=== PATIENT | male | born 1945 | race Caucasian/White ===

== ENCOUNTER → 2016-10-23 | Outpatient (REF) | payer MEDICARE ==
[~2016-10-23] MED LIST: ASPI1TAB PO; DIOV80TA3 PO; DOXA1TAB40 PO; FISH100049 PO; LATA5OPD OD; META0.52 PO; MYRB50TA PO; PREV30CA11 PO; VITA500046 PO
== END ==
LOC: M LAB REF 12:00
PROVIDERS: ATTEND Physician Assistant
DX: R39.89 Other symptoms and signs involving the genitourinary system (principal)

== ENCOUNTER → 2020-12-23 | Outpatient (CLI) | payer MEDICARE ==
[~2020-12-23] MED LIST changes: -ASPI1TAB PO; +ASPI81TA26 PO; +LATA0.0013 OD; -LATA5OPD OD; +PREV1CAP PO; -PREV30CA11 PO
== END ==
LOC: M LABSMTC 10:04
PROVIDERS: ATTEND Thoracic Surgery (Cardiothoracic Vascular Surgery)
DX: Z01.812 Encounter for preprocedural laboratory examination (principal); Z11.52 Encounter for screening for COVID-19

== ENCOUNTER → 2025-06-26 | Outpatient (CLI) | payer MEDICARE | LOC: M CARPUL 13:01 | PROVIDERS: ATTEND Registered Nurse | DX: I35.0 Nonrheumatic aortic (valve) stenosis (principal) ==